=== PATIENT | female | born 1985 | race Caucasian/White ===

== ENCOUNTER 2018-01-09 10:24 | Emergency (ER) | payer MEDICAID ==
[2010-01-05 07:38] VITALS: BMI 30.8
== END 2018-01-09 11:10 | disposition home or self-care (01) ==
LOC: D.ER 10:24
DX: S49.91XA Unspecified injury of right shoulder and upper arm, initial encounter (principal); W19.XXXA Unspecified fall, initial encounter; Y93.89 Activity, other specified; Y92.019 Unspecified place in single-family (private) house as the place of occurrence of the external cause; F17.200 Nicotine dependence, unspecified, uncomplicated